=== PATIENT | female | born 1990 | race Two or more races ===

== ENCOUNTER 2018-08-31 03:59 | Emergency (ER) | payer SELFPAY ==
[~2018-08-31] VITALS: Ht 167.6 cm; Wt 61.2 kg
[2018-08-31] MEDS ORDERED: Haloperidol 5mg/ml Inj IM ONE (04:15)
[2018-08-31] MEDS ORDERED: Haloperidol 5mg/ml Inj ONE (04:18)
[2018-08-31 04:25] VITALS: BP 144/87
--- NOTE | 2018-08-31 04:53 | Emergency Room Report ---
History of Present Illness General Chief Complaint: Substance Abuse Source: Patient Present Illness HPI This is a 28-year-old female with unknown medical history. She has a questionable psychiatric history. She was brought in by EMS for agitation. Acting abnormally. She was in a parking lot of her grocery store yelling and agitated. Patient denies any drug abuse. Police thought that she may have OD on methamphetamine. Denies any other complaint. history is limited because she is not cooperative. Allergies: Coded Allergies: UNABLE TO ASSESS (Unverified , 08/31/18) Patient History Past Medical History: see triage record, old chart reviewed Past Surgical History: unable to obtain Pertinent Family History: unable to obtain Now: No Immunizations: other Reviewed Nursing Documentation: PMH: Agreed; PSxH: Agreed Nursing Documentation-PMH Past Medical History Deferred: Pt Cognitively Impaired Review of Systems Eye: Denies: eye pain, blurred vision ENT: Denies: ear pain, nose congestion, throat swelling Respiratory: Denies: cough, shortness of breath Cardiovascular: Denies: chest pain, palpitations Gastrointestinal: Denies: abdominal pain, diarrhea, nausea, vomiting Musculoskeletal: Denies: back pain, joint pain Skin: Denies: rash Neurological: Denies: headache, numbness Endocrine: Denies: increased thirst, increased urine Hematologic/Lymphatic: Denies: easy bruising All Other Systems: negative except mentioned in HPI Physical Exam Vital Signs Date Time Temp Pulse Resp B/P (MAP) Pulse Ox O2 Delivery O2 Flow Rate FiO2 08/31/18 04:00 99.0 116 14 146/87 99 Room Air 08/31/18 04:25 99 vital signs tachycardia Sp02 EP Interpretation: reviewed, normal General Appearance: well appearing, no apparent distress, alert, other - agitated, disheveled Head: normocephalic, atraumatic Eyes: bilateral eye PERRL, bilateral eye EOMI ENT: hearing grossly normal, normal pharynx Neck: full range of motion, supple, no meningismus Respiratory: chest non-tender, lungs clear, normal breath sounds Cardiovascular #1: regular rate, rhythm, no murmur Gastrointestinal: normal bowel sounds, non tender, no mass, no organomegaly, no bruit, non-distended Musculoskeletal: back normal, gait/station normal, normal range of motion Psychiatric: no suicidal/homicidal ideation, other - agitation Skin: warm/dry Medical Decision Making Diagnostic Impression: Primary Impression: Behavioral disorder ER Course Further behavior disorder. This may be secondary to drug abuse exacerbating psychiatric issue. She's not suicidal homicidal. She's calm after dose of Haldol. No criteria for 5150. Patient will be discharged home. Last Vital Signs Date Time Temp Pulse Resp B/P (MAP) Pulse Ox O2 Delivery O2 Flow Rate FiO2 08/31/18 04:25 100 20 Room Air 99 08/31/18 04:25 99.0 144/87 99 Status: improved Disposition: HOME, SELF-CARE Condition: Stable Referrals: NOT CHOSEN IPA/MD,REFERRING (PCP) Additional Instructions: Follow-up with mental health within a week. Return if symptom worsen. Abstain from drugs and alcohol. Miky Vázquez MD Aug 31, 2018 04:53
[2018-08-31 05:30] VITALS: BP 136/79
[2018-08-31 06:28] VITALS: BP 113/72
== END 2018-08-31 06:29 | disposition home or self-care (01) ==
LOC: EDBD 03:59 → EMR 04:20
DX: F91.9 Conduct disorder, unspecified (principal); R45.1 Restlessness and agitation
CPT/HCPCS: 96372; 99283; J1630